=== PATIENT | male | born 1970 | race Two or more races ===

== ENCOUNTER → 2017-07-11 | Outpatient (CLI) | payer OTHER ==
[2017-07-11] MEDS: NORMAL SALINE IV (09:52)
[2017-07-11] MEDS: SINCALIDE IV (09:52)
== END | disposition home or self-care (01) ==
LOC: NM 07:45
DX: R10.11 Right upper quadrant pain (principal); R11.0 Nausea
CPT/HCPCS: 78226; 96374; 96375; A9537; J2805